=== PATIENT | female | born 1980 | race Caucasian/White ===

== ENCOUNTER 2022-05-12 15:03 | Outpatient (REF) | payer MEDICAID, SELFPAY ==
[2022-05-12 16:31] LABS: MANUAL DIFF FLAG NO
[2022-05-12 16:33] LABS: Basophils Absolute Auto 0.1 X10*3/uL (0.0-0.2); Eosinophils Absolute Auto 0.1 X10*3/uL (0.0-0.4); Eosinophils Percent Auto 1.5 % (0-4); Hematocrit 41.4 % (37.0-47.0); Hemoglobin 14.1 g/dl (12.0-16.0); Imm Gran Abs Auto 0.02 X10*3/uL (0.00-0.03); Imm Gran Pct Auto 0.2 % (0.0-0.4); Lymphocytes Absolute Auto 2.3 X10*3/uL (1.2-4.9); Lymphocytes Percent Auto 28.8 % (20-40); Mean Corpuscular HGB Conc 34.1 g/dl (31.0-35.0); Mean Corpuscular Hemoglobin 32.3 pg (27.0-33.0); Mean Corpuscular Volume 94.7 fL (80.0-98.0); Mean Platelet Volume 10.7 fL (9.4-12.3); Monocytes Absolute Auto 0.5 X10*3/uL (0.1-1.2); Monocytes Percent Auto 5.5 % (2-11); Neutrophils Absolute Auto 5.1 x10*3/uL (2.0-8.3); Platelet Count 295 X10*3/uL (160-400); Red Blood Count 4.37 X10*6/uL (4.20-5.50); White Blood Count 8.1 X10*3/uL (4.8-10.8)
[2022-05-12 16:41] LABS: D Dimer High Sensitivity < 150 NG/ML
[2022-05-12 16:49] LABS: Alanine Aminotransferase 14 U/L (0-31); Albumin Level 4.8 g/dL (3.5-5.0); Alkaline Phosphatase 61 U/L (39-117); Anion Gap 17 (12-20); Aspartate Amino Transferase 16 U/L (5-31); Bilirubin Total 0.7 mg/dL (0.0-1.0); Blood Urea Nitrogen 9 mg/dL (9-16); C Reactive Protein 0.12 mg/dL (< or = 0.50); Calcium 9.5 mg/dL (8.4-10.2); Carbon Dioxide 24 mmol/L (22-29); Chloride 102 mmol/L (96-108); Estimated Glomerular Filt Rate 59; Glucose Random 81 mg/dL (60-115); Magnesium 2.1 mg/dL (1.6-2.6); Potassium 3.9 mmol/L (3.3-5.1); Sodium 139 mmol/L (135-145); Total Protein 7.4 g/dL (6.5-8.0)
[2022-05-12 17:11] LABS: Free T4 (Free Thyroxine) 0.51 ng/dL (0.71-1.85); Thyroid Stimulating Hormone 24.41 uIU/mL (0.32-4.0)
[2022-05-12 17:22] LABS: Vitamin B12 287 pg/mL (200-900)
[2022-05-12 18:05] LABS: Erythrocyte Sedimentation Rate 3 MM/HR (0-20)
== END 2022-05-12 15:04 | disposition home or self-care (01) ==
LOC: HO.MANLDS 15:03
PROVIDERS: Visit Provider Physician Assistant
DX: Z13.89 Encounter for screening for other disorder (principal)
CPT/HCPCS: 36415; 80053; 82607; 82746; 83735; 84439; 84443; 85025; 85379; 85652; 86140

== ENCOUNTER → 2022-05-15 07:24 | Outpatient (REF) | payer MEDICAID, SELFPAY ==
--- NOTE | 2022-05-15 07:29 | CA_ITS ---
Transthoracic Echocardiogram Patient (Last, First, Middle): Angela Corbett H Gender: Female Date of : 1980 Age: 41 Procedure Date: 05/15/2022 Procedure Type: Transthoracic Echocardiogram Location: OP Height: 165.1 cm Weight: 74.84 kg BSA: 1.82 m2 Heart Rate: 65 bpm BP: 128 / 80 mmHg Reinforcing Steel Worker: LEROY Referring MD: Alicia TREVINO Symptoms: SYNCOPE AND COLLAPSE Study Quality: Adequate ECG Rhythm: Sinus Conclusions: - Normal left ventricular size and systolic function. The visually estimated ejection fraction is between 60-65%. - E/E prime ratio is between 8 and 15 consistent with indeterminate filling pressures. - There is mild septal asymmetric hypertrophy. - Normal right ventricular cavity size and systolic function. - Low global longitudinal strain -13. Findings Left Ventricle Normal left ventricular size and systolic function. The visually estimated ejection fraction is between 60-65%. There is no evidence of regional wall motion abnormalities. Abnormal diastolic function is noted. Spectral Doppler is indicative of an impaired relaxation filling pattern. E/E prime ratio is between 8 and 15 consistent with indeterminate filling pressures. There is mild septal asymmetric hypertrophy. Right Ventricle Normal right ventricular cavity size and systolic function. Atria Both atria are normal in size. Aortic Valve Normal aortic valve structure and function. There is no aortic valve stenosis. There is no aortic valve regurgitation. Mitral Valve The mitral valve appears normal. There is no mitral valve regurgitation. There is no mitral valve stenosis. Pulmonic Valve The pulmonic valve is likely normal. There is trace pulmonic valve regurgitation. Tricuspid Valve Normal tricuspid valve structure. There is no tricuspid valve regurgitation. Normal right atrial pressure. There is no evidence of pulmonary hypertension. Great Vessels There is mild dilatation of the ascending aorta measuring 3.20 cm. The visualized portions of the pulmonary artery and branches are normal. Venous The inferior vena cava is normal in size and collapses greater than 50% with inspiration. Pericardium/Pleural There is no evidence of pericardial effusion. Prior Study Comparison No prior study available for comparison. Measurements 2D Linear Measurements IVSd: 1.03 0.6-0.9/0.6-1.0 cm LVIDd: 4.64 3.9-5.3/4.2-5.9 cm LVIDd Index: 2.55 2.4-3.2/2.2-3.1 cm/m2 LVIDs: 3.24 2.0-3.6 cm LVPWd: 0.65 0.7-1.1 cm LA Diam: 2.70 2.7-3.8/3.0-4.0 cm LAIDs Index: 1.48 1.5-2.3 cm/m2 LV Mass: 158.39 67-162/88-224 g LV Mass Index: 87.03 43-95/49-115 g/m2 LVOT Diam: 2.10 3.0+(-)1.3 cm 2D Systolic Function EF 4C: 63.50 >55% EF 2C: 61.60 >55% EF BiP: 62.40 >55% Mitral Valve MV Pk E: 0.49 MV PK A: 0.42 MV Decel Time: 185.00 E/A: 1.20 E'Lateral: 5.87 E'Medial: 4.24 E/E' Med: 11.60 E/E' Lat: 8.40 PHT: 54.00 MVA PHT: 4.07 Decel Navarro: 2.66 Aortic Valve AoV Pk Kvng: 1.06 AoV Mn Kvng: 0.79 AoV VTI: 0.20 AoV Pk Grad: 4.00 Aov Mn Grad: 3.00 ROBERT Cont.VTI: 2.63 LVOT LVOT Pk Kvng: 0.85 LVOT Mn Kvng: 0.66 LVOT VTI: 0.15 LVOT Pk Grad: 3.00 LVOT Mn Grad: 2.00 LVOT Diam: 2.10 LVOT Area: 3.46 Diastolic Function MV Pk E: 0.49 MV Pk A: 0.42 E/A: 1.20 E'Medial: 4.24 E/E' Med: 11.60 E' Laterial: 5.87 E/E' Lat: 8.40 Right Ventricle TAPSE (mm): 16.30 TVS' Kvng: 10.40 Tricuspid Valve TR Pk Kvng: 1.57 TR Pk Grad: 10.00 RA Press: 3.00 RVSP: 13.00 Great Vessels Aorta Sinus of Valsalva: 2.70 2.0-3.5 cm Ao Asc: 3.20 2.1-3.4 cm Pulmonary Veins Pulm Vein S/D 0.90 Pulmonary Valve PV Pk Kvng: 0.58 Peak PV Grad: 1.00 Updated in Other Vendor System with Status of Final Ortega Santiago MD electronically signed on 05/17/2022 9:03:21 PM with status of Final
== END ==
LOC: HO.CARD 07:24
PROVIDERS: Visit Provider Physician Assistant
DX: R42 Dizziness and giddiness (principal)
CPT/HCPCS: 93306

== ENCOUNTER 2022-05-29 11:48 | Outpatient (REF) | payer MEDICAID, SELFPAY ==
[2022-05-29 13:55] LABS: MANUAL DIFF FLAG NO
[2022-05-29 14:03] LABS: Basophils Absolute Auto 0.1 X10*3/uL (0.0-0.2); Basophils Percent Auto 1.1 % (0-2); Eosinophils Absolute Auto 0.1 X10*3/uL (0.0-0.4); Eosinophils Percent Auto 1.6 % (0-4); Hematocrit 38.6 % (37.0-47.0); Hemoglobin 12.7 g/dl (12.0-16.0); Imm Gran Abs Auto 0.02 X10*3/uL (0.00-0.03); Imm Gran Pct Auto 0.3 % (0.0-0.4); Lymphocytes Absolute Auto 2.3 X10*3/uL (1.2-4.9); Lymphocytes Percent Auto 29.5 % (20-40); Mean Corpuscular HGB Conc 32.9 g/dl (31.0-35.0); Mean Corpuscular Hemoglobin 31.8 pg (27.0-33.0); Mean Corpuscular Volume 96.7 fL (80.0-98.0); Mean Platelet Volume 10.3 fL (9.4-12.3); Monocytes Absolute Auto 0.5 X10*3/uL (0.1-1.2); Monocytes Percent Auto 6.3 % (2-11); Neutrophils Absolute Auto 4.8 x10*3/uL (2.0-8.3); Neutrophils Percent Auto 61.2 % (45-73); Platelet Count 301 X10*3/uL (160-400); Red Blood Count 3.99 X10*6/uL (4.20-5.50); Red Cell Distribution Width 13.8 % (11.0-16.0); White Blood Count 7.9 X10*3/uL (4.8-10.8)
[2022-05-29 15:13] LABS: Iron 104 mcg/dL (30-160); Percent Iron Saturation 34 % (15-50); Total Iron Binding Capacity 306 mcg/dL (228-428); Unsaturated Iron Binding 202 ug/dL
[2022-05-29 15:26] LABS: Ferritin 108 ng/mL (10-250)
== END 2022-05-29 11:49 | disposition home or self-care (01) ==
LOC: HO.MANLDS 11:48
PROVIDERS: Visit Provider Physician Assistant
DX: E03.8 Other specified hypothyroidism (principal); D50.0 Iron deficiency anemia secondary to blood loss (chronic)
CPT/HCPCS: 36415; 82728; 83540; 84439; 84443; 85025

== ENCOUNTER 2022-12-29 11:54 | Outpatient (REF) | payer MEDICAID, SELFPAY ==
[2022-12-29 15:01] LABS: Iron 49 mcg/dL (30-160); Percent Iron Saturation 16 % (15-50); Total Iron Binding Capacity 304 mcg/dL (228-428); Unsaturated Iron Binding 255 ug/dL
[2022-12-29 15:28] LABS: Ferritin 105 ng/mL (10-250); Folate 8.8 ng/mL (> or = 4.0); Free T4 (Free Thyroxine) 1.11 ng/dL (0.71-1.85); Thyroid Stimulating Hormone 1.56 uIU/mL (0.32-4.0); Vitamin B12 360 pg/mL (200-900)
[2022-12-31 02:33] LABS: Thyroglobulin Antibodies <1 IU/mL (< or = 1); Thyroid Peroxidase Antibodies 1 IU/mL (<9)
[2022-12-31 06:48] LABS: Lyme Abs Screen <0.90 index
[2023-01-02 01:38] LABS: Zinc 82 mcg/dL (60-130)
== END 2022-12-29 11:55 | disposition home or self-care (01) ==
LOC: HO.MANLDS 11:54
PROVIDERS: Visit Provider Physician Assistant
DX: R43.2 Parageusia (principal); E03.8 Other specified hypothyroidism; R42 Dizziness and giddiness
CPT/HCPCS: 36415; 82607; 82728; 82746; 83540; 84439; 84443; 84630; 86376; 86617; 86618; 86800

== ENCOUNTER 2022-12-30 12:48 | Emergency (ER) | payer MEDICAID, SELFPAY ==
--- NOTE | ~2022-12-30 | US_ITS ---
EXAMINATION: US ABDOMEN LIMITED CLINICAL INFORMATION: Right upper quadrant and epigastric pain.. COMPARISON: None available. TECHNIQUE: Real-time imaging of the right upper quadrant limited to the gallbladder and common duct. FINDINGS: GALLBLADDER: The gallbladder is distended normally and shows no wall thickening, sludge, or calculus. There is no subserosal edema or pericholecystic fluid. Health Physics Technician notes patient is tender in the region of the gallbladder, positive sonographic Lopez's sign. COMMON BILE DUCT: Normal in caliber measuring 0.4 cm in diameter. US/US abdomen limited IMPRESSION: No cholelithiasis, gallbladder wall thickening, or common ductal dilatation.
--- NOTE | 2022-12-30 12:55 | ECG_ITS ---
Test Reason : PAIN Blood Pressure : / mmHG Vent. Rate : 070 BPM Atrial Rate : 070 BPM P-R Int : 156 ms QRS Dur : 082 ms QT Int : 368 ms P-R-T Axes : 037 038 023 degrees QTc Int : 397 ms Normal sinus rhythm Possible Left atrial enlargement Low voltage QRS Borderline ECG No previous ECGs available Referred By: Antione Tafoya Electronically Signed By:Ortega Santiago
[2022-12-30 12:56] VITALS: BP 146/100; PULSE 84; RESP 16; TEMP 37; O2SAT 98; BMI 27.5
--- NOTE | 2022-12-30 12:56 | ED.GENADULT ---
[facility] - General Adult General Chief complaint: Headache Stated complaint: dizziness/ nausea Time Seen by Provider: 12/30/22 16:09 Source: patient Mode of arrival: ambulatory History of Present Illness HPI narrative: 42-year-old female who presents with complaints headache, dizziness, nausea, and was seen at [facility] over the weekend (Wednesday) and states that she had an MRI of her neck which was negative but states that she is continued to be nauseous and have a headache, she was prescribed antinausea medication it yesterday but has had little appetite for the past 3-4 days and states that she stopped drinking alcohol a number years ago. Related Data Previous Rx's Medication Instructions Recorded omeprazole 20 mg capsule,delayed 20 mg PO DAILY #30 caps 12/30/22 release Allergies Allergy/AdvReac Type Severity Reaction Status Date / Time acetaminophen [From TYLENOL] Allergy Unknown NAUSEA Verified 12/30/22 12:55 amoxicillin [AMOXICILLIN] Allergy Unknown N/A Verified 12/30/22 12:55 Review of Systems Review of Systems: Pertinent positives and negatives as stated in HPI [facility] Past Medical History Source: nursing notes reviewed Social History Social History Advance Directives: No Advance Directives Information Provided: Yes Physical Exam ED Vital Signs: Vital Signs - 24 hr 12/30/22 12:56 Temperature 98.6 F Pulse Rate 84 Respiratory Rate 16 Blood Pressure 146/100 H Pulse Oximetry 98 Oxygen Delivery Method Room Air BMI result Body Mass Index 27.5 VITAL SIGNS: Reviewed. GENERAL: Well developed, well nourished, in no acute distress. HEAD: Normocephalic/atraumatic EYES: PERRLA, EOMI EARS: Ext canals without abnormality NOSE: Nares patent bilateral OROPHARYNX: no oral lesions noted, posterior pharynx clear NECK: Supple, no adenopathy LUNGS: Normal breath sounds. No adventitious sounds or accessory muscle use. SpO2<98> CARDIOVASCULAR: Regular rate and rhythm without noted murmurs ABDOMEN: Soft, tenderness to palpation in right upper quadrant and epigastric, non-distended with bowel sounds. MUSCULOSKELETAL: No tenderness, deformities, or effusions noted on gross inspection. EXTREMITIES: No cyanosis, clubbing or edema. SKIN: Inspection of the skin reveals no rashes NEUROLOGIC: Alert and oriented x 4. Strength and sensation to light touch were grossly intact x 4. Course Course Course Narrative: RME- 42 year old female presents for evaluation of multiple complaints including, headache, dizziness, nausea. Reports going to [facility] over the weekend. She is well appearing. Plan for labs, EKG. Medications Administered Discontinued Medications Generic Name Dose Route Start Last Admin Trade Name Hilaria PRN Reason Stop Dose Admin Al Hydroxide/Mg Hydroxide 30 ml 12/30/22 16:20 12/30/22 17:04 Magnesium Hydrox/Alum Hydrox 30 Ml Oral.Susp PO 12/30/22 16:21 30 ml ONCE ONE Administration Sodium Chloride 1,000 mls @ 999 mls/hr 12/30/22 16:30 12/30/22 17:04 Ns IV 12/30/22 17:30 999 mls/hr .Q1H1M ELLIOT Administration Ketorolac Tromethamine 15 mg 12/30/22 16:20 12/30/22 17:04 Ketorolac Tromethamine 30 Mg/Ml Vial IVPUSH 12/30/22 16:21 15 mg ONCE ONE Administration Lidocaine HCl 10 ml 12/30/22 16:20 12/30/22 17:04 Lidocaine Hcl Viscous 2 % 15 Ml Solution MUCOUS MEM 12/30/22 16:21 10 ml ONCE ONE Administration Ondansetron HCl 4 mg 12/30/22 16:20 12/30/22 17:04 Ondansetron Hcl 4 Mg/2 Ml Vial IVPUSH 12/30/22 16:21 4 mg ONCE ONE Administration Medical Decision Making Medical Decision Making [facility] [place] Narrative: 1624: 42-year-old female in whom I suspect after review of all investigations to have a possible biliary pancreatitis, patient is not febrile and there is no leukocytosis but there is an elevated lipase. - IV fluids, Zofran/ketorolac, GI cocktail, right upper quadrant ultrasound On re-evaluation and complete review of investigations, patient is feeling better, the GI cocktail did help with her symptoms no evidence to suggest cholecystitis and otherwise patient remains hemodynamically stable and is able to tolerate oral intake and so will be discharged home. She states she has plenty of antinausea medication and I will discharge her with a prescription for omeprazole and instructions alcohol primary care provider. Differential Diagnosis Please see the discussion above Lab Data Please see the discussion above 12/30/22 14:00 12/30/22 14:00 Labs: Lab Results 12/30/22 12/30/22 12/30/22 Range/Units 14:00 14:00 14:00 WBC 9.9 (4.8-10.8) X10*3/uL RBC 4.28 (4.20-5.50) X10*6/uL Hgb 13.7 (12.0-16.0) g/dl Hct 41.1 (37.0-47.0) % MCV 96.0 (80.0-98.0) fL MCH 32.0 (27.0-33.0) pg MCHC 33.3 (31.0-35.0) g/dl RDW 13.3 (11.0-16.0) % Plt Count 367 (160-400) X10*3/uL MPV 9.3 L (9.4-12.3) fL Immature Gran % (Auto) 0.2 (0.0-0.4) % Neut % (Auto) 65.5 (45-73) % Lymph % (Auto) 28.2 (20-40) % Parker % (Auto) 4.4 (2-11) % Eos % (Auto) 0.7 (0-4) % Baso % (Auto) 1.0 (0-2) % Lymph # (Auto) 2.8 (1.2-4.9) X10*3/uL Parker # (Auto) 0.4 (0.1-1.2) X10*3/uL Eos # (Auto) 0.1 (0.0-0.4) X10*3/uL Baso # (Auto) 0.1 (0.0-0.2) X10*3/uL Abs Immat Gran (auto) 0.02 (0.00-0.03) X10*3/uL Absolute Neuts (auto) 6.5 (2.0-8.3) x10*3/uL Absolute Nucleated RBC 0.000 (0.0-0.012) X10*3/uL Nucleated RBC % (auto) 0.0 (0.0-0.2) /100WBC Sodium 140 (135-145) mmol/L Potassium 3.9 (3.3-5.1) mmol/L Chloride 106 (96-108) mmol/L Carbon Dioxide 26 (22-29) mmol/L Anion Gap 12 (12-20) BUN 10 (9-16) mg/dL Creatinine 0.86 (0.5-1.4) mg/dL Estim Creat Clear Calc 85.3 Estimated GFR > 60 Random Glucose 94 (60-115) mg/dL Calcium 9.5 (8.4-10.2) mg/dL Total Bilirubin 0.4 (0.0-1.0) mg/dL AST 14 (5-31) U/L ALT 14 (0-31) U/L Alkaline Phosphatase 60 (39-117) U/L Total Protein 7.0 (6.5-8.0) g/dL Albumin 4.4 (3.5-5.0) g/dL Lipase 293 H (8-78) U/L COVID-19 (RAISA) Negative (Negative) COVID-19 Clin Com See Note Radiology Impression Radiologist Impression: My interpretation is in agreement with radiology's impression. External Record Review External record reviewed: Prior outpatient labs Discharge Plan Discharge Clinical Impression: Acute pancreatitis, Gastritis Patient Disposition: Home, Self-Care Instructions: Gastritis (ED), Pancreatitis (ED), Diet for Stomach Ulcers and Gastritis (ED) Additional Instructions: 1. Resume all home medications as prescribed. 2. Increase the amount of water intake for the next 2-3 days, use your prescription for antinausea medication to help facilitate this rehydration. 3. Gradually increase your diet as your able to tolerate. 4. Please follow-up your primary care provider and would recommend a discussion regarding referral to Gastroenterology for the pancreatitis. Return to the ER for any worsening symptoms. Prescriptions: New omeprazole 20 mg capsule,delayed release(DR/EC) 20 mg PO DAILY Qty: 30 0RF Referrals: Дмитрий Pritchard MD [Primary Care Provider] -
[2022-12-30 14:12] LABS: MANUAL DIFF FLAG NO
[2022-12-30 14:14] LABS: Basophils Absolute Auto 0.1 X10*3/uL (0.0-0.2); Eosinophils Absolute Auto 0.1 X10*3/uL (0.0-0.4); Eosinophils Percent Auto 0.7 % (0-4); Hematocrit 41.1 % (37.0-47.0); Hemoglobin 13.7 g/dl (12.0-16.0); Imm Gran Abs Auto 0.02 X10*3/uL (0.00-0.03); Imm Gran Pct Auto 0.2 % (0.0-0.4); Lymphocytes Absolute Auto 2.8 X10*3/uL (1.2-4.9); Lymphocytes Percent Auto 28.2 % (20-40); Mean Corpuscular HGB Conc 33.3 g/dl (31.0-35.0); Mean Platelet Volume 9.3 fL (9.4-12.3); Monocytes Absolute Auto 0.4 X10*3/uL (0.1-1.2); Monocytes Percent Auto 4.4 % (2-11); Neutrophils Absolute Auto 6.5 x10*3/uL (2.0-8.3); Neutrophils Percent Auto 65.5 % (45-73); Platelet Count 367 X10*3/uL (160-400); Red Blood Count 4.28 X10*6/uL (4.20-5.50); Red Cell Distribution Width 13.3 % (11.0-16.0); White Blood Count 9.9 X10*3/uL (4.8-10.8)
[2022-12-30 14:34] LABS: Alanine Aminotransferase 14 U/L (0-31); Albumin Level 4.4 g/dL (3.5-5.0); Alkaline Phosphatase 60 U/L (39-117); Anion Gap 12 (12-20); Aspartate Amino Transferase 14 U/L (5-31); Bilirubin Total 0.4 mg/dL (0.0-1.0); Blood Urea Nitrogen 10 mg/dL (9-16); Calcium 9.5 mg/dL (8.4-10.2); Carbon Dioxide 26 mmol/L (22-29); Chloride 106 mmol/L (96-108); Creatinine Clr Calc Pharmacy 85.3; Estimated Glomerular Filt Rate > 60; Glucose Random 94 mg/dL (60-115); Potassium 3.9 mmol/L (3.3-5.1); Sodium 140 mmol/L (135-145)
[2022-12-30 14:37] LABS: COVID-19 Test Negative (Negative); IDNOW Serial# 08D9AD1C; IDNOW Serial# BCCEAD1C
[2022-12-30 14:38] LABS: Influenza A Negative (Negative); Influenza B2 Negative (Negative)
[2022-12-30 14:40] LABS: Lipase 293 U/L (8-78)
[2022-12-30] MEDS: Lidocaine HCl Viscous 2 % 15 ML SOLUTION 10 ML MUCOUS MEM (17:04)
[2022-12-30] MEDS: Ketorolac Tromethamine 30 MG/ML VIAL 15 MG IVPUSH (17:04)
[2022-12-30] MEDS: 0.9 % Sodium Chloride 1,000 ML 999 ML IV (17:04)
[2022-12-30] MEDS: Magnesium Hydrox/Alum Hydrox 30 ML ORAL.SUSP PO (17:04)
[2022-12-30] MEDS: ondansetron HCL 4 MG/2 ML VIAL IVPUSH (17:04)
[2022-12-30 18:26] VITALS: BP 118/70; PULSE 62; RESP 20; TEMP 36.8; O2SAT 97
== END 2022-12-30 18:36 | disposition home or self-care (01) ==
PROVIDERS: Physician Assistant; Emergency Provider Student in an Organized Health Care Education/Training Program; PCP Internal Medicine
DX: K85.90 Acute pancreatitis without necrosis or infection, unspecified (principal); K29.70 Gastritis, unspecified, without bleeding; Z20.822 Contact with and (suspected) exposure to COVID-19
CPT/HCPCS: 76705; 80053; 83690; 85025; 87502; 87635; 93005; 96374; 96375; 99284; J1885; J2405